=== PATIENT | female | born 1945 | race Caucasian/White ===

== ENCOUNTER → 2017-01-02 | Outpatient (CLI) | payer OTHER, BC ==
[~2017-01-02] MED LIST: ALPR-411 PO; AMB10 PO; AMLO-110 PO; ATEN50TA8 PO; ATOR-26 PO; LANS30CA12 PO; NIAC1TAB52 PO; RIVA1TAB4 PO; SERT1TAB92 PO; [UNRECOGNIZED DRUG - OTHER] IV
== END | disposition home or self-care (01) ==
LOC: C.LABSPEC 12:40
PROVIDERS: ATTEND Internal Medicine
DX: A04.8 Other specified bacterial intestinal infections (principal)

== ENCOUNTER → 2017-01-18 | Outpatient (CLI) | payer OTHER, BC ==
[2017-01-18 12:27] LABS: HEMATOCRIT 31.3 % (37-47); MEAN CELL VOLUME 83.7 fL (80-100); MEAN CORPUSCULAR HEMOGLOBIN 25.9 pg (25-34); MEAN PLATELET VOLUME 10.2 fL (7.4-10.4); PLATELET COUNT 332 K/uL (130-400); RED BLOOD COUNT 3.74 M/uL (4.2-5.4); WHITE BLOOD COUNT 4.43 K/uL (4.8-10.8)
[2017-01-18 12:41] LABS: ALT/SGPT 21 U/L (12-78); AST/SGOT 20 U/L (15-37); BLOOD UREA NITROGEN 22 mg/dl (7-18); BUN/CREATININE RATIO 32.7 (10-20); CALCIUM 8.6 mg/dl (8.5-10.1); CARBON DIOXIDE 29 mmol/L (21-32); CHLORIDE 107 mmol/L (98-107); CREATININE 0.67 mg/dl (0.60-1.20); GLUCOSE 83 mg/dl (70-99); POTASSIUM 3.5 mmol/L (3.5-5.1); SODIUM 143 mmol/L (136-145)
[2017-01-18 12:44] LABS: ALB/GLOB RATIO 0.9 (0.9-2); ALKALINE PHOSPHATASE 97 U/L (45-117)
== END | disposition home or self-care (01) ==
LOC: C.LAB1850 10:17
PROVIDERS: ATTEND Internal Medicine Cardiovascular Disease
DX: I48.0 Paroxysmal atrial fibrillation (principal)

== ENCOUNTER → 2017-01-26 | Outpatient (CLI) | payer OTHER, BC ==
[2017-01-26 14:59] LABS: FERRITIN 5.4 ng/ml (8.0-388.0)
--- NOTE | 2017-01-31 12:58 | CODING QUERY MEDICAL NECESSITY ---
SUPPORTING DIAGNOSIS NEEDED A supporting diagnosis is required for the test/procedure performed on this patient in order for us to be reimbursed by the patient's insurance. Please provide a supporting diagnosis for the following test/procedure listed below next to the test name along with your signature. *If there is no additional diagnosis for this patient that would support the following test/procedure please document that below next to the test/procedure. Test(s)/Procedure(s) that require a supporting diagnosis: * FOLATE LEVEL DIAGNOSIS: * VITAMIN B 12 LEVEL DIAGNOSIS * DOS: 01/26/17 Provider Signature: Date: Thank you Valorie Castellanos Health Information Management Once completed, please kindly fax back to [phone] For questions please call [phone]
== END | disposition home or self-care (01) ==
LOC: C.LAB1850 13:13
PROVIDERS: ATTEND Internal Medicine
DX: D64.9 Anemia, unspecified (principal)

== ENCOUNTER → 2017-02-04 | Outpatient (CLI) | payer OTHER, BC | END | disposition home or self-care (01) | LOC: C.LAB1850 13:02 | PROVIDERS: ATTEND Internal Medicine | DX: E78.00 Pure hypercholesterolemia, unspecified (principal) ==

== ENCOUNTER → 2017-03-02 | Outpatient (CLI) | payer OTHER, BC | END | disposition home or self-care (01) | LOC: C.LAB1850 12:06 | PROVIDERS: ATTEND Physician Assistant | DX: D64.9 Anemia, unspecified (principal) ==

== ENCOUNTER → 2017-03-05 | Outpatient (CLI) | payer OTHER, BC | END | disposition home or self-care (01) | LOC: C.LABSPEC 13:45 | PROVIDERS: ATTEND Internal Medicine | DX: K92.1 Melena (principal) ==

== ENCOUNTER → 2017-07-27 | Outpatient (CLI) | payer OTHER, BC ==
[2017-07-27 11:08] LABS: BASO % 0.8 %; BASO ABS # 0.04 K/uL (0-0.2); COMPLETE YES; EOS % 1.5 %; HEMATOCRIT 36.4 % (37-47); IG% 0.2 %; LYMPH % 33.3 %; LYMPH ABS # 1.57 K/uL (1.2-3.4); MEAN CELL VOLUME 92.9 fL (80-100); MEAN CORPUSCULAR HEMOGLOBIN 30.1 pg (25-34); MEAN CORPUSCULAR HGB CONC 32.4 g/dl (32-36); MEAN PLATELET VOLUME 10.2 fL (7.4-10.4); MONO % 9.1 %; NEUT % 55.1 %; PLATELET COUNT 312 K/uL (130-400); RED BLOOD COUNT 3.92 M/uL (4.2-5.4); WHITE BLOOD COUNT 4.72 K/uL (4.8-10.8)
[2017-07-27 11:38] LABS: AST/SGOT 22 U/L (15-37); BLOOD UREA NITROGEN 21 mg/dl (7-18); BUN/CREATININE RATIO 29.7 (10-20); CALCIUM 8.7 mg/dl (8.5-10.1); CARBON DIOXIDE 31 mmol/L (21-32); CHLORIDE 108 mmol/L (98-107); CHOLESTEROL 122 mg/dl (0-200); CREATININE 0.69 mg/dl (0.60-1.20); GLUCOSE 94 mg/dl (70-99); POTASSIUM 3.8 mmol/L (3.5-5.1); SODIUM 142 mmol/L (136-145)
[2017-07-27 11:49] LABS: ALT/SGPT 30 U/L (12-78); CHOLESTEROL/HDL RATIO 2.4; HDL CHOLESTEROL 50 mg/dl; LDL CHOLESTEROL CALCULATED 52 mg/dl; TRIGLYCERIDES 98 mg/dl (0-150); VERY LOW DENSITY LIPOPROT CALC 20 mg/dl
[2017-07-27 13:59] LABS: ESTIMATED AVERAGE GLUCOSE 114 mg/dl; HA1C FLAG Normal (Normal)
== END | disposition home or self-care (01) ==
LOC: C.LABBC 09:12
PROVIDERS: ATTEND Internal Medicine
DX: D50.9 Iron deficiency anemia, unspecified (principal); E78.00 Pure hypercholesterolemia, unspecified; I10 Essential (primary) hypertension; R73.9 Hyperglycemia, unspecified; I49.9 Cardiac arrhythmia, unspecified

== ENCOUNTER → 2017-12-08 | Outpatient (CLI) | payer OTHER, BC ==
[2017-12-08 13:19] LABS: BASO % 0.6 %; BASO ABS # 0.04 K/uL (0-0.2); EOS % 1.5 %; EOS ABS # 0.09 K/uL (0-0.5); HEMATOCRIT 32.5 % (37-47); IG# 0.01 K/uL (0.00-0.02); LYMPH % 28.5 %; LYMPH ABS # 1.76 K/uL (1.2-3.4); MEAN CELL VOLUME 86.4 fL (80-100); MEAN CORPUSCULAR HEMOGLOBIN 26.6 pg (25-34); MEAN CORPUSCULAR HGB CONC 30.8 g/dl (32-36); MEAN PLATELET VOLUME 10.2 fL (7.4-10.4); MONO % 10.9 %; MONO ABS # 0.67 K/uL (0.11-0.59); NEUT % 58.3 %; PLATELET COUNT 280 K/uL (130-400); RED CELL DISTRIBUTION WIDTH CV 17.5 % (11.5-14.5); RED CELL DISTRIBUTION WIDTH SD 55.5 fL (36.4-46.3); WHITE BLOOD COUNT 6.17 K/uL (4.8-10.8)
== END | disposition home or self-care (01) ==
LOC: C.LAB1850 12:37
PROVIDERS: ATTEND Internal Medicine
DX: I48.0 Paroxysmal atrial fibrillation (principal)

== ENCOUNTER → 2017-12-13 | Outpatient (CLI) | payer OTHER ==
[2017-12-15 16:58] LABS: FECAL OCCULT BLOOD #1 NEGATIVE (NEGATIVE); FECAL OCCULT BLOOD #2 NEGATIVE (NEGATIVE); FECAL OCCULT BLOOD #3 NEGATIVE (NEGATIVE)
== END | disposition home or self-care (01) ==
LOC: C.LABSPEC 16:23
PROVIDERS: ATTEND Internal Medicine
DX: D64.9 Anemia, unspecified (principal)

== ENCOUNTER → 2017-12-15 | Outpatient (CLI) | payer OTHER, BC | END | disposition home or self-care (01) | LOC: C.LABSPEC 11:09 | PROVIDERS: ATTEND Internal Medicine | DX: D64.9 Anemia, unspecified (principal) ==

== ENCOUNTER → 2018-01-11 | Outpatient (CLI) | payer OTHER ==
[2018-01-11 10:02] LABS: BASO % 0.7 %; BASO ABS # 0.03 K/uL (0-0.2); EOS % 2.4 %; EOS ABS # 0.11 K/uL (0-0.5); HEMATOCRIT 36.7 % (37-47); HEMOGLOBIN 11.7 g/dL (12.0-16.0); LYMPH % 39.6 %; LYMPH ABS # 1.78 K/uL (1.2-3.4); MEAN CELL VOLUME 90.8 fL (80-100); MEAN CORPUSCULAR HGB CONC 31.9 g/dl (32-36); MEAN PLATELET VOLUME 10.5 fL (7.4-10.4); MONO % 9.8 %; MONO ABS # 0.44 K/uL (0.11-0.59); NEUT % 47.5 %; NEUT ABS # 2.13 K/uL (1.4-6.5); PLATELET COUNT 244 K/uL (130-400); RED CELL DISTRIBUTION WIDTH CV 22.3 % (11.5-14.5); RED CELL DISTRIBUTION WIDTH SD 73.4 fL (36.4-46.3); WHITE BLOOD COUNT 4.49 K/uL (4.8-10.8)
== END | disposition home or self-care (01) ==
LOC: C.LAB1850 09:01
PROVIDERS: ATTEND Internal Medicine
DX: D64.9 Anemia, unspecified (principal); E78.00 Pure hypercholesterolemia, unspecified